=== PATIENT | female | born 1960 | race Caucasian/White ===

== ENCOUNTER 2017-04-01 16:07 | Emergency (ER) | payer BC ==
[~2017-04-01] VITALS: Ht 162.6 cm; Wt 80.7 kg
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
[2017-04-01] MEDS ORDERED: ROBAXIN-750750 MG PO (16:47)
[2017-04-01] MEDS ORDERED: IBUPROFEN600 MG ORAL (16:47)
[2017-04-01] MEDS ORDERED: LIDODERM700 M1 TOPIC (16:47)
[2017-04-01 17:15] VITALS: BP 126/88
== END 2017-04-01 17:15 | disposition home or self-care (01) ==
LOC: EMR 17:00
DX: S16.1XXA Strain of muscle, fascia and tendon at neck level, initial encounter (principal); V43.52XA Car driver injured in collision with other type car in traffic accident, initial encounter; Y92.410 Unspecified street and highway as the place of occurrence of the external cause
CPT/HCPCS: 99283